=== PATIENT | male | born 1995 | race African-American/Black ===

== ENCOUNTER 2017-11-14 17:29 | Emergency (ER) | payer OTHER ==
[~2017-11-14] VITALS: Ht 175.3 cm; Wt 81.6 kg
[~2017-11-14 17:29] MED LIST: FLEXERIL10 MG PO; MOTRIN600 MG PO
[2017-11-14 17:33] VITALS: BP 127/84
--- NOTE | 2017-11-14 20:24 | ED GI/GU/ABDOMINAL COMPLAINT ---
History of Present Illness General Chief Complaint: Abdominal Pain/Flank Pain Stated Complaint: ABD PAIN,NAUSEA,CHILLS Source: patient Exam Limitations: no limitations Vital Signs & Intake/Output Vital Signs & Intake/Output Vital Signs Date Time Temp Pulse Resp B/P B/P Pulse O2 O2 Flow FiO2 Mean Ox Delivery Rate 11/14 1733 98.0 100 18 127/84 97 ED Intake and Output 11/15 0000 11/14 1200 Intake Total Output Total Balance Patient 180 lb Weight Weight Reported by Patient Measurement Method Allergies Coded Allergies: Penicillins (UNKNOWN 11/14/17) Reconcile Medications CYCLOBENZAPRINE HCL (Flexeril) 10 MG TAB 1 TAB PO Q8P PRN PAIN Ibuprofen (Motrin) 600 MG TAB 1 TAB PO Q6P PRN PAIN Ondansetron (Zofran Odt) 4 MG TAB.RAPDIS 1 TAB SL TID NAUSEA Triage Note: PT HERE WITH NAUSEA AND CHILLS FOR THE PAST 4 HOURS. PT STATES HE IS HAVING ABD PAIN Triage Nurses Notes Reviewed? yes Onset: Gradual Duration: hour(s): Timing: single episode today Quality/Severity: moderate Location: generalized abdomen HPI: 22yo male presents to ED complaining of nausea and chills beginning today. Patient states that he woke up as normal, ate skittles and [employer] for lunch. Patient began feeling nauseous and after few hours reported here to the emergency department. While he was waiting in the waiting room patient had episode of "forceful" nonbilious nonbloody vomiting. Following vomiting patient experiencing central chest pain and abdominal pain described as 7/10. Patient was waiting in the waiting room for a long time, he went to the urgent care and they gave him 1 dose of IM Zofran and recommended he return here to the emergency department. Patient also reports loose stools beginning today. Patient recently traveled to [place], returned 3 days ago. He denies sick contact, skin rash, nasal congestion, cough, fevers, chills, headache, urinary symptoms. Past History Travel History Traveled to [facility] past 21 day No Medical History Any Pertinent Medical History? none Neurological: NONE EENT: NONE Cardiovascular: NONE Respiratory: NONE Gastrointestinal: NONE Hepatic: NONE Renal: NONE Musculoskeletal: NONE Psychiatric: NONE Endocrine: NONE Cancer(s): NONE Surgical History Surgical History: N Psychosocial History What is your primary language Belarusian Tobacco Use: Never used ETOH Use: denies use Illicit Drug Use: denies illicit drug use Family History Hx Contributory? No Review of Systems Review of Systems Constitutional: Reports: no symptoms. EENTM: Reports: no symptoms. Respiratory: Reports: no symptoms. Cardiovascular: Reports: see HPI. GI: Reports: see HPI. Genitourinary: Reports: no symptoms. Musculoskeletal: Reports: no symptoms. Skin: Reports: no symptoms. Neurological/Psychological: Reports: no symptoms. Hematologic/Endocrine: Reports: no symptoms. Immunologic/Allergic: Reports: no symptoms. All Other Systems: Reviewed and Negative Physical Exam Physical Exam General Appearance: well developed/nourished, no apparent distress, alert, awake Head: atraumatic, normal appearance Eyes: Bilateral: normal appearance. Ears, Nose, Throat, Mouth: hearing grossly normal, moist mucous membrane Neck: normal inspection, supple, full range of motion Respiratory: normal breath sounds, no respiratory distress, lungs clear, sternal chest tenderness Cardiovascular: regular rate/rhythm Gastrointestinal: normal bowel sounds, soft, no organomegaly, generalized tenderness through out abdominal exam, no rebound tenderness Back: normal inspection, normal range of motion Extremities: normal range of motion Neurologic/Psych: awake, alert, oriented x 3 Skin: intact, normal color, warm/dry Core Measures ACS in differential dx? No Sepsis Present: No Sepsis Focused Exam Completed? No Progress Differential Diagnosis: appendicitis, bowel obstruction, diverticulitis, gastritis, hernia, inflamm bowel dis, pancreatitis, peptic ulcer, PUD/GERD, pyelonephritis, SBO Plan of Care: Orders Procedure Date/time Status RAPID VIRAL INFLUENZA A 11/14 2051 Complete LIPASE 11/14 2049 Complete D-DIMER 11/14 2049 Complete COMPREHENSIVE METABOLIC PANEL 11/14 2049 Complete CBC WITHOUT DIFFERENTIAL 11/14 2049 Complete AMYLASE 11/14 2049 Complete Laboratory Tests 11/14/172056: Anion Gap 15, Estimated GFR > 60, BUN/Creatinine Ratio 12.5, Glucose 99, Calcium 9.3, Total Bilirubin 1.6 H, AST 38, ALT 33, Alkaline Phosphatase 100, Total Protein 7.6, Albumin 4.6, Globulin 3.0, Albumin/Globulin Ratio 1.5, Amylase 69, Lipase 29, D-Dimer High Sensitivty < 200, CBC w Diff NO MAN DIFF REQ, RBC 5.07, MCV 83.4, MCH 27.3, RDW 12.8, MPV 7.9, Gran % 93.4 H, Lymphocytes % 4.2 L, Monocytes % 2.1, Eosinophils % 0.3, Basophils % 0, Absolute Granulocytes 9.4 H, Absolute Lymphocytes 0.4 L, Absolute Monocytes 0.2, Absolute Eosinophils 0, Absolute Basophils 0, PUBS MCHC 32.7 L Microbiology 11/14 2105 NASOPHARYN: Influenza Virus A & B Rapid Smear - COMP Patient's blood work is within normal limits. Patient feels improvement in pain following GI cocktail and IV Tylenol, he reports pain in his chest has resolved. Repeat abdominal exam without tenderness, chest is nontender on repeat exam. Patient likely suffering from gastroenteritis versus food poisoning. He was prescribed Zofran for further nausea or vomiting. The patient was educated on BRAT diet and slowly advancing his diet to prevent return of symptoms. Patient is in no acute distress, nontoxic appearing, his vital signs are stable. The patient and his father agree with the plan of care. There is a low suspicion for appendicitis given no McBurney's point tenderness, repeat abdominal exam is without tenderness. Patient is tolerating PO here in the emergency department. Initial ED EKG: none Departure Departure Disposition: HOME OR SELF CARE Condition: Stable Clinical Impression Primary Impression: Nausea & vomiting Qualifiers: Vomiting type: unspecified Vomiting Intractability: non-intractable Qualified Code: R11.2 - Nausea with vomiting, unspecified Secondary Impressions: Abdominal pain Qualifiers: Abdominal location: generalized Qualified Code: R10.84 - Generalized abdominal pain Referrals: Ashley Lopez MD (PCP/Family) Additional Instructions: Take Zofran as prescribed as needed for nausea. Slowly advance YOUR diet once you had been keeping down liquids. Try bananas, rice, applesauce, toast. Follow-up with your primary care physician. If you have worsening abdominal pain, high fevers, or other concerns please return immediately to the emergency department. Please note that there might be incidental findings in your evaluation that are unrelated to the current emergency department visit. Please notify your primary care doctor about this emergency department visit in order to obtain and review all of the testing performed so that these incidental findings can be monitored as needed. If you had an x-ray performed, please understand that some fractures may not be seen on the initial set of x-rays. If your symptoms persist you might need a repeat set of x-rays to check for such a fracture. If you had a laceration evaluated, please understand that foreign bodies such as glass or wood may not be visible to the naked eye or on plain x-rays. If the wound becomes red, swollen, increasingly more painful or if there is any drainage from the wound, please have it reevaluated by a physician for the possibility of a retained foreign body. If you're unable to follow up as outlined in the discharge instructions please return to the emergency department. Thank you for choosing the [facility] for your care. It was a pleasure to serve you today. Departure Forms: Customer Survey General Discharge Information Prescriptions: Current Visit Scripts Ondansetron (Zofran Odt) 1 TAB SL TID #10 TAB
[2017-11-14 21:06] LABS: ABSOLUTE BASOPHIL COUNT 0 /CUMM (0.0-0.2); ABSOLUTE EOSINOPHIL COUNT 0 /CUMM (0.0-0.7); ABSOLUTE GRANULOCYTE CT 9.4 /CUMM (1.4-6.5); ABSOLUTE LYMPH COUNT 0.4 /CUMM (1.2-3.4); ABSOLUTE MONOCYTE COUNT 0.2 /CUMM (0.10-0.60); BASOPHIL % 0 % (0.0-2.0); EOSINOPHIL % 0.3 % (0-5); HEMATOCRIT 42.3 % (42-52); MEAN CORPUSCULAR HGB 27.3 PG (27.0-31.0); MEAN CORPUSCULAR HGB CONC 32.7 G/DL (33.0-37.0); MEAN CORPUSCULAR VOLUME 83.4 FL (80.0-94.0); MEAN PLATELET VOLUME 7.9 FL (7.4-10.4); PLATELET COUNT 238 /CUMM (130-400); RBC DISTRIBUTION WIDTH 12.8 % (11.5-14.5); RED BLOOD CELL CT 5.07 /CUMM (4.70-6.10); WHITE BLOOD CELL COUNT 10.1 /CUMM (4.8-10.8)
[2017-11-14 21:30] LABS: GRANULOCYTE % 93.4 % (42.2-75.2)
[2017-11-14] MEDS ORDERED: ZOFRAN ODT4 M1 SL (22:42)
== END 2017-11-14 22:47 ==
LOC: ERH 17:29
PROVIDERS: Physician Assistant
DX: R11.2 Nausea with vomiting, unspecified (principal); R10.84 Generalized abdominal pain
CPT/HCPCS: 87804; 87804-59; 96374; J0131